=== PATIENT | male | born 1990 | race Caucasian/White ===

== ENCOUNTER 2020-07-21 01:39 | Emergency (ER) | payer OTHER ==
[2020-07-21] MEDS ORDERED: AUGMENTIN 875-1 EACH PO (06:43)
== END 2020-07-21 06:50 | disposition home or self-care (01) ==
LOC: ER1 01:39
DX: S01.511A Laceration without foreign body of lip, initial encounter (principal); S06.9X9A Unspecified intracranial injury with loss of consciousness of unspecified duration, initial encounter; F17.290 Nicotine dependence, other tobacco product, uncomplicated; W22.8XXA Striking against or struck by other objects, initial encounter
CPT/HCPCS: 12013; 70450; 99283

== ENCOUNTER 2020-07-22 16:46 | Emergency (ER) | payer OTHER ==
[~2020-07-22 16:46] MED LIST: AUGMENTIN 875-1 EACH PO
== END 2020-07-22 18:07 | disposition home or self-care (01) ==
LOC: ER1 16:46
DX: Z48.817 Encounter for surgical aftercare following surgery on the skin and subcutaneous tissue (principal); S01.512A Laceration without foreign body of oral cavity, initial encounter; W22.8XXA Striking against or struck by other objects, initial encounter
CPT/HCPCS: 99282